=== PATIENT | male | born 1985 | race Caucasian/White ===

== ENCOUNTER 2020-09-08 02:46 | Outpatient (CLI) | payer MEDICAID, SELFPAY ==
[2020-09-11 18:16] LABS: Patient Race White; SARS-CoV-2 RNA Undetected (Undetected); SARS-CoV-2 Specimen Source Nasal
== END 2020-09-08 03:06 ==
PROVIDERS: PCP Family Medicine; Visit Provider Family Medicine
DX: Z20.828 Contact with and (suspected) exposure to other viral communicable diseases (principal)
CPT/HCPCS: U0003

== ENCOUNTER 2021-03-30 14:15 | Emergency (ER) | payer MEDICAID, SELFPAY ==
[2021-03-30] VITALS (25 sets, daily range): BP systolic 130–158; BP diastolic 74–121; PULSE 80–150; RESP 11–28; TEMP 36.8–37; O2SAT 96–100
--- NOTE | 2021-03-30 15:15 | DI.US_ITS ---
Exam(s) US LOWER EXTREMITY VENOUS RT EXAM: US LOWER EXTREMITY VENOUS RT CLINICAL HISTORY: pain. throbbing TECHNIQUE: Right lower extremity venous ultrasound performed using grayscale, color-flow, and spectr al Doppler analysis. COMPARISON: No exams were available for comparison FINDINGS: The right common femoral, femoral and popliteal veins demonstrate normal compressibility, augmentatio n, and color Doppler. The posterior tibial veins are patent. The saphenofemoral junction is unremark able. There is no evidence of a Love cyst. The soft tissues are unremarkable. IMPRESSION: No DVT. DATA REPOSITORY:
--- NOTE | 2021-03-30 15:15 | DI.CT_ITS ---
Exam(s) CT CHEST PE CTA EXAM: CT CHEST PE CTA CLINICAL HISTORY: shortness of breath, presyncope. TECHNIQUE: Imaging Protocol: Axial CT angiography was performed with multi-slice acquisition and mu lti-planar and/or 3D reconstructions. CONTRAST MATERIAL: Intravenous: Omnipaque 350 Contrast volume:100 mL COMPARISON: No previous for comparison. FINDINGS: Tracheobronchial tree: Patent where visualized. Pulmonary parenchyma: No consolidation or dominant measurable mass. No architectural distortion. Pulmonary Arteries: No evidence of filling defect to suggest pulmonary emboli. There is limited evalu ation of the segmental branches due to poor opacification. Mediastinum and Nadya: No dominant adenopathy or fluid collection. Visualized thyroid gland: Unremarkable. Pleura: No effusion or pneumothorax. Heart: The heart is not dilated. No coronary artery calcifications are seen. No pericardial effusion. Aorta: Thoracic aorta non-dilated. No evidence of dissection. Upper abdomen: Unremarkable. Soft tissues: Unremarkable. Bones: Normal. IMPRESSION: No evidence of central pulmonary embolism, thoracic aortic dissection or aneurysm. RADIATION DOSE DELIVERED: 877.21mGy.cm Total DLP DATA REPOSITORY: All CT scans at this facility are submitted to the National Radiology Data Registry (NRDR) Dose Index Registry (DIR) with the [employer] (ACR). RADIATION OPTIMIZATION: All CT scans at this facility use at least one of these dose optimization te chniques: automated exposure control; mA and/or kV adjustment per patient size (includes targeted exa ms where dose is matched to clinical indication); or iterative reconstruction.
--- NOTE | 2021-03-30 15:26 | ED.GENADUL_ITS ---
Discharge Plan Disposition Patient Disposition: HOME Condition: Stable Discharge Details Clinical Impression: Acute neck pain, Shortness of breath, Sinus tachycardia, Anxiety, Hypokalemia Primary Care Provider: Jeffrey Thompson ED Provider: Xavier Perdomo Home Meds and New Rx's Prescriptions: Continued Excedrin Migraine 250-250-65 mg tablet 2 tab PO Q6H PRNRF: 0 finasteride 1 mg tablet 1 mg PO DAILY RF: 0 Discharge Instructions Instructions: Alprazolam (By mouth), Hypokalemia (ED), Dyspnea (ED), Anxiety (ED), Neck Pain (ED) Additional Instructions: Please maintain holter monitor and return as directed. Please take Xanax for severe anxiety. Take 1 tab by mouth twice a day only if needed for anxiety. Please contact your primary care physician to arrange follow-up. Return to the ER for any worsening or new concerning symptoms. Referrals: Jeffrey Thompson, MANAGER VIDEO [Primary Care Provider] - Discharge Data Discharge Date/Time-TO BE ENTERED AT DEPARTURE: 03/30/21 19:20 Medical Decision Making 1541 -- 36-year-old male seen immediately on my arrival, here today with right- sided neck pressure. Also with recent spontaneous swelling and pain in his right lower extremity as well as having had an episode of presyncope prior to arrival. Patient was tachycardic and normotensive with heart rate around 100 when I initially assessed him. He then developed increased heart rate to 140s to 150s spontaneously and had worsening discomfort in his right neck. Concern for acute pulmonary embolism. Plan to CT chest. Consider other etiologies including DVT and right-sided carotid artery dissection. Consider arrhythmia. Will obtain stat EKG. 1553--ECG was reviewed interpreted by me: Sinus tachycardia 140 bpm, no STEMI. Oxygen has been administered and heart rate is improving. We will give Ativan 0.5 mg IV for anxiety. Plan to proceed to CT of the chest. --Patient was reassessed and significant improvement after Ativan. Notes feeling much better. 1740 --CT of the chest to assess for pulmonary embolism was interpreted by [facility]: No acute findings, no central PE, no pneumonia. No pericardial effusion. No pneumothorax. CTA of the neck was interpreted by radiology: Diminutive right vertebral artery compared to left, most consistent with normal variation. No aneurysm nor stenosis identified. No dissection or occlusion of carotid arteries. Ultrasound of the right lower extremity was interpreted by radiology: No e vidence of DVT. Labs reviewed: Patient has mild hypokalemia. I have given him a significant IV fluid here post contrast will give potassium chloride 20 meq orally. Patient reassessed and is remained stable after Ativan treatment. Given negative work-up I do believe anxiety is contributing to his presentation today. Plan will be for discharge with outpatient follow-up with primary care hero mariscal. I will place holter monitor to expedite outpatient workup. Disposition decision was made weighing the risks and benefits of hospitalization versus outpatient treatment, the risk for further decompensation, and the patient's wishes. The patient was stable and requested discharge. Prior to discharge, my usual and customary return precautions were reviewed with the patient - this included follow-up instructions and reason to return to the emergency department if condition worsens, does not improve as expected, or other new concerns arise. I spoke with patient's father at patient's request and discussed ED presentation and course and discharge plan. HPI General Mode of arrival: EMS . Date/Time Provider Initiated Documentation: 03/30/21 14:22 . Limitations to Documentation: no limitations . Information obtained by: patient and EMS . HPI Narrative: 36-year-old male with no significant past medical history is here with chief complaint of neck discomfort. Patient notes throbbing discomfort in his right neck that started few weeks ago and has occurred intermittently since onset. Today he has had discomfort in his neck and also had associated presyncope. He notes he felt lightheaded like he was going to pass out and had associated shortness of breath. Discomfort is moderate with no modifiers. No trauma. He has never had anything similar prior to the past few weeks. No associated numbness. He does have tingling in his hands bilaterally intermittently. Patient also notes spontaneous swelling of a vein anterior right goodman that he noticed while playing soccer 3 weeks ago. Swelling and engorgement of the vein resolved but he now has an area of bruising that has persisted there. Patient does note associated anxiety. Related Data Home Medications Medication Instructions Recorded Confirmed [id number]-rgaghkle 250 2 tab PO Q6H PRN 04/06/19 04/02/21 mg-250 mg-65 mg tablet finasteride 1 mg tablet 1 mg PO DAILY 04/11/20 04/02/21 Allergies Allergy/AdvReac Type Severity Reaction Status Date / Time No Known Allergies Allergy Verified 04/02/21 13:02 General Stated Complaint: GenMedical SINDY: 3 Review of Systems All systems reviewed & are unremarkable except as noted in HPI and below Constitutional Constitutional: Reports as per HPI and Denies fever(s) Cardiovascular Cardiovascular: Denies chest pain and Reports dyspnea Respiratory Respiratory: Reports dyspnea [facility] Medical History (Updated 03/30/21 @ 18:03 by Xavier Perdomo MD) Concussion Vaccine counseling Surgical History S/P knee surgery Right knee ACL Surgery Family History Mother Depression Diabetes Asthma Father Depression Brother Alcohol abuse Depression Substance abuse Brother Asthma Maternal Grandfather , 70's Diabetes Heart disease Hypertension Paternal Grandfather , 60's Alcohol abuse Depression Stroke Maternal Grandmother , 70's Heart disease Paternal Grandmother , 70's Depression Heart disease Social History Smoking/Tobacco Use Status: Never Smoking risk assessment performed?: Yes Alcohol Intake: current Alcohol Intake frequency: a few times a week Alcohol type: beer Drug use: Occasionally Substance use type: marijuana Caregiver/Support person: No Household members: family Housing: house Communication Needs: None Do you need help understanding health information?: Rarely Pets and animals: No Sexually active: No Do you think of yourself as: straight/heterosexual Current gender identity: male What is your relationship status?: never How often do you talk on the phone with friends or family?: three or more times per week How often do you get together with friends or relatives?: never How often do you attend buddhism or alevism services?: 1-3 times per year Do you belong to any clubs or organized social groups?: yes Panel score (0-1 are the most socially isolated patients): 2 What type of physical activity do you participate in: other 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, yard work Duration: 60-90 minutes/day Frequency: daily Aby/Presybeterian: None Special aby needs: No Seatbelt use: always Helmet use: Yes Helmet use: always Drive intox or ride w/intox courtesy van driver: No Do you feel safe at home: Yes Do you feel safe in your relationship?: Yes Exam Const General: cooperative, uncomfortable, well developed, anxious and diaphoretic Orientation: alert HENID Head: normocephalic and atraumatic Mouth: moist mucous membranes Eyes Conjunctivae: normal conjunctivae Sclera: normal sclerae EOM: EOM intact bilaterally Neck Neck: trachea midline and supple Resp Auscultation: clear to auscultation bilaterally, no rales, no rhonchi and no wheezes Cardio Jugular venous pressure: no JVD Rate: tachycardic Rhythm: regular rhythm Heart Sounds: S1 normal, S2 normal and no murmurs GI Palpation: soft, not firm, no guarding, no masses, not rigid and nontender Skin General skin exam: no rashes or lesions noted Neuro General: patient alert, patient awake, patient oriented x3 and tone normal Extrem General: no edema Right lower extremity: lower leg Details: no edema and other (Yellow discolorat ion with ecchymosis anterior lower leg); no tenderness and no unusual warmth Psych Appearance: grossly normal Mental Status: mental status grossly normal Speech and Movement: speech and movement normal Affect: anxious affect Course Vital Signs Vital signs: Vital Signs Temperature 37 C 03/30/21 14:20 Pulse 108 H 03/30/21 14:20 Respiratory Rate 23 03/30/21 14:20 Blood Pressure 140/82 03/30/21 14:20 Pulse Oximetry 100 03/30/21 14:20 Temperature 37 C 03/30/21 14:20 Temperature Source Skin 03/30/21 14:20 Pulse 108 H 03/30/21 14:20 Respiratory Rate 15 03/30/21 14:56 Respiratory Effort Non-Labored 03/30/21 14:56 Respiratory Depth Normal 03/30/21 14:56 Respiratory Pattern Normal 03/30/21 14:56 Blood Pressure 140/82 03/30/21 14:20 Blood Pressure Position Supine 03/30/21 14:20 Pulse Oximetry 100 03/30/21 14:20 Oxygen Delivery Method Room Air 03/30/21 14:20 Oxygen Flow Rate 0 03/30/21 14:20 Pain Level 6 03/30/21 14:20
--- NOTE | 2021-03-30 15:30 | RT.EKG_ITS ---
APPROVED REPORT Exam: Resting ECG Reason for Exam: S.o.b Patient Location: E HR:140 bpm ECG Measurements Heart Rate 140 AXIS AR 137 P 74 QRSd 102 QRS 178 QT 283 T 1 QTc 433 Conclusion Sinus tachycardia...rate> 99 ...Q>35mS, abnrm ST-T, V2-V6,I,aVL no sign of HOCM, brugada, or WPW
[2021-03-30] MEDS: Normal Saline 500 ML 999 ML IV (15:40)
[2021-03-30 15:47] LABS: Abs Immature Grans 0.05 10^3/uL (0.0-0.06); Absolute Basophil Count 0.07 10^3/uL (0.0-0.2); Absolute Eosinophil Count 0.04 10^3/uL (0.0-0.7); Absolute Neutrophil Count 8.33 10^3/uL (1.2-6.7); Basophils % 0.6; Eosinophils % 0.3; HCT 45.9 % (40.0-50.0); HGB 16.1 g/dL (13.5-17.5); Immature Grans % 0.4; Lymphocytes % 20.2; MCHC 35.1 % (32.0-36.0); MCV 85.6 fL (80-95); MPV 9.6 fL (8.0-11.0); Monocytes % 8.4; Neutrophils % 70.1; Nucleated RBC 0 %; Platelet Count 285 10^3/uL (130-400); RBC 5.36 10^6/uL (4.36-5.78); RDW 11.8 % (11.8-14.1); RDW-SD 37.1 fL; WBC 11.89 10^3/uL (4.4-10.8)
[2021-03-30] MEDS: Normal Saline Flush 10 ML SYR IVP (15:50)
[2021-03-30] MEDS: LORazepam 2 MG/ML VIAL 0.5 MG IVP (15:58)
--- NOTE | 2021-03-30 16:00 | DI.CT_ITS ---
Exam(s) CT CAROTID NECK CTA EXAM: CT CAROTID NECK CTA CLINICAL HISTORY: pain rt neck, presyncope. TECHNIQUE: Imaging Protocol: Axial CT angiography was performed with multi-slice acquisition and mu lti-planar and/or 3D reconstructions. CONTRAST MATERIAL: Intravenous: Omnipaque 350 Contrast volume:85 mL COMPARISON: No exams were available for comparison FINDINGS: The examination is limited due to patient motion artifact. CTA Neck W: Common Carotid: Right: No aneurysm, occlusion or significant stenosis. Left: No aneurysm, occlusion or significant stenosis. External Carotid: Right: No aneurysm, occlusion or significant stenosis. Left: No aneurysm, occlusion or significant stenosis. Internal Carotid: Right: No aneurysm, occlusion or significant stenosis. Left: No aneurysm, occlusion or significant stenosis. Vertebral Artery: Right: No aneurysm, occlusion or significant stenosis. The right vertebral artery is markedly diminu tive through its entire course. This may represent a normal variant. No definite dissection. Left: No aneurysm, occlusion or significant stenosis. Lung Apices: Normal. Thyroid gland: Unremarkable. Bones: Minimal degenerative changes are seen in the cervical spine. Soft Tissues: Normal. IMPRESSION: 1. No aneurysm, occlusion or significant stenosis. 2. Diminutive right vertebral artery compared to the left. This may represent a normal variant. RADIATION DOSE DELIVERED: 297.95mGy.cm Total DLP 297.95mGy.cm Total DLP DATA REPOSITORY: All CT scans at this facility are submitted to the National Radiology Data Registry (NRDR) Dose Index Registry (DIR) with the [employer] (ACR). RADIATION OPTIMIZATION: All CT scans at this facility use at least one of these dose optimization te chniques: automated exposure control; mA and/or kV adjustment per patient size (includes targeted exa ms where dose is matched to clinical indication); or iterative reconstruction.
[2021-03-30 16:03] LABS: ALT 38 U/L (16-63); AST 17 U/L (15-37); Albumin 4.3 g/dL (3.4-5.0); Alkaline Phosphatase 64 U/L (46-116); Anion Gap 13.5 mmol/L (3-11); BUN 13 mg/dL (7-18); Bilirubin, Total 0.4 mg/dL (0.2-1.0); CO2 23.5 mmol/L (21.0-32.0); CREATININE 1.3 mg/dL (0.70-1.30); Calcium 9.1 mg/dL (8.5-10.1); Chloride 104 mmol/L (98-107); Glucose 115 mg/dL (74-106); Magnesium 2.1 mg/dL (1.8-2.4); Potassium 3.3 mmol/L (3.5-5.1); Sodium 141 mmol/L (136-145); Total Protein 7.9 g/dL (6.4-8.2)
[2021-03-30 16:07] LABS: Troponin I < 0.05 ng/mL (<0.06)
[2021-03-30] MEDS: Normal Saline - Diluent 50 ML VIAL IV (16:10)
[2021-03-30] MEDS: Omnipaque 350 MG/ML 100 ML BTL IJ ×2 (16:10→16:11)
[2021-03-30 16:29] LABS: TSH (W/Ref FT4) 1.81 uIU/mL (0.36-3.74)
--- NOTE | 2021-03-30 17:10 | DI.VRAD_ITS ---
PROCEDURE INFORMATION: Exam: CT Angiography Neck With Contrast Exam date and time: 03/30/2021 4:01 PM Age: 36 years old Clinical indication: Other: Right neck pain, pre-syncope TECHNIQUE: Imaging protocol: Computed tomography angiography of the neck with contrast. 3D rendering (Not supervised by radiologist): MIP and/or 3D reconstructed images were created by the technologist. Radiation optimization: All CT scans at this facility use at least one of these dose optimization techniques: automated exposure control; mA and/or kV adjustment per patient size (includes targeted exams where dose is matched to clinical indication); or iterative reconstruction. Contrast material: OMNIPAQUE 350; Contrast volume: 85 ml; Contrast route: INTRAVENOUS (IV); COMPARISON: No relevant prior studies available. FINDINGS: Right common carotid artery: No stenosis. No dissection or occlusion. Right internal carotid artery: No stenosis of the extracranial segment. No dissection or occlusion. Right external carotid artery: No occlusion or stenosis of the origin. Left common carotid artery: No stenosis. No dissection or occlusion. Left internal carotid artery: No stenosis of the extracranial segment. No dissection or occlusion. Left external carotid artery: No occlusion or stenosis of the origin. Right vertebral artery: The right vertebral artery is markedly diminutive compared to the left from its origin through its visualized course in the neck. This is most consistent with normal variation No stenosis. No dissection or occlusion. Left vertebral artery: No stenosis. No dissection or occlusion. Soft tissues: Normal. No significant soft tissue swelling. Bones/joints: No acute fracture. Other findings: Images are degraded by motion. IMPRESSION: Diminutive right vertebral artery compared with the left, most consistent with normal variation. No aneurysm nor stenosis identified. REFERENCES: NASCET CRITERIA. The degree of internal carotid artery stenosis is based on NASCET criteria. Normal is no stenosis. Mild is less than 50% stenosis. Moderate is 50-69% stenosis. Severe is 70% to 99% stenosis. Total occlusion is no detectable patent lumen. Dictated and Authenticated by: April Horn MD. Ordering:ANNETTE Park MD
--- NOTE | 2021-03-30 17:11 | DI.VRAD_ITS ---
PROCEDURE INFORMATION: Exam: CTA Chest With Contrast Exam date and time: 03/30/2021 3:27 PM Age: 36 years old Clinical indication: Shortness of breath; Patient HX: Severe SOB, presyncope TECHNIQUE: Imaging protocol: Computed tomographic angiography of the chest with contrast. 3D rendering (Not supervised by radiologist): MIP and/or 3D reconstructed images were created by the technologist. Total images: 1711 Radiation optimization: All CT scans at this facility use at least one of these dose optimization techniques: automated exposure control; mA and/or kV adjustment per patient size (includes targeted exams where dose is matched to clinical indication); or iterative reconstruction. Contrast material: OMNIPAQUE 350; Contrast volume: 50 ml; Contrast route: INTRAVENOUS (IV); COMPARISON: No relevant prior studies available. FINDINGS: Pulmonary arteries: No filling defect in the central pulmonary arterial tree. Segmental branches are limited by quality of opacification. Aorta: No aortic aneurysm. No aortic dissection. Lungs: No consolidation, mass or suspicious pulmonary nodule. Pleural spaces: No pneumothorax. No pleural effusion. Heart: No pericardial effusion. Lymph nodes: No mediastinal, hilar or axillary adenopathy. Bones/joints: No significant bony or joint space abnormality. Soft tissues: Extrathoracic soft tissues are unremarkable. IMPRESSION: No acute findings. No central PE. No pneumonia. Dictated and Authenticated by: Hero Rosas MD. Ordering:ANNETTE Park MD
[2021-03-30] MEDS: Lactated Ringers 1,000 ML 1000 ML IV (17:19)
[2021-03-30] MEDS: Potassium Chloride 20 MEQ TABCR PO (17:24)
--- NOTE | 2021-03-30 17:43 | DI.VRAD_ITS ---
PROCEDURE INFORMATION: Exam: US Duplex Right Lower Extremity Veins, Limited Exam date and time: 03/30/2021 3:27 PM Age: 36 years old Clinical indication: Pain; Leg, lower; Right TECHNIQUE: Imaging protocol: Real-time Duplex ultrasound of the Right Lower Extremity with 2-D gonzalez scale, color Doppler flow and spectral waveform analysis with image documentation. Limited exam was focused on the right lower extremity veins. Total images: 35 COMPARISON: No relevant prior studies available. FINDINGS: Right deep veins: Unremarkable. The common femoral, femoral, proximal profunda femoral and popliteal veins are patent without thrombus. Normal Doppler waveforms. Normal compressibility and/or augmentation response. Posterior tibial and peroneal veins compress. Right superficial veins: Unremarkable. Saphenofemoral junction is patent without thrombus. Soft tissues: Unremarkable. IMPRESSION: No evidence of deep vein thrombosis. Dictated and Authenticated by: Hero Rosas MD. Ordering:ANNETTE Park MD
[2021-03-30] MEDS: ALPRAZolam 0.25 MG TAB 0.75 MG PO (18:23)
== END 2021-03-30 19:20 | disposition home or self-care (01) ==
PROVIDERS: Emergency Provider Student in an Organized Health Care Education/Training Program; PCP Nurse Practitioner Family
DX: M54.2 Cervicalgia (principal); R06.02 Shortness of breath; R00.0 Tachycardia, unspecified; F41.9 Anxiety disorder, unspecified; E87.6 Hypokalemia
CPT/HCPCS: 70498; 71275; 80053; 93005; 96361; 96374; 99285; 83735; 84443; 84484; 85025; 93010; 93225; 93971; 99284; J2060; J3490

== ENCOUNTER 2021-03-30 18:42 | Outpatient (RCR) | payer MEDICAID, SELFPAY ==
--- NOTE | 2021-03-30 18:45 | HOLTER_ITS ---
APPROVED REPORT Conclusion There is a 48-hour monitor ordered for indication of tachycardia. The patient was normal sinus rhythm with majority the recording with an average heart of 64 bpm. There were no episodes of supraventricular tachycardia nor any episodes of ventricular tachycardia. There were 2 total premature atrial contractions and 2 total premature ventricular contractions. There were no episodes of atrial fibrillation, no pauses greater than 3 seconds and no evidence of hi gh degree heart block. There were 16 patient triggered events none of which were associated with arrhythmia.
== END 2021-04-18 23:59 | disposition home or self-care (01) ==
LOC: RT 18:42
PROVIDERS: PCP Nurse Practitioner Family; Visit Provider Nurse Practitioner Family
DX: R00.0 Tachycardia, unspecified (principal)
CPT/HCPCS: 93225; 93226

== ENCOUNTER 2022-01-07 18:19 | Outpatient (REF) | payer MEDICAID, SELFPAY ==
[2022-01-07 19:14] LABS: *AMPHETAMINES SCREEN URINE Negative (Negative); *BARBITURATES SCREEN URINE Negative (Negative); *BENZODIAZEPINES SCREEN URINE Negative (Negative); Cannabinoids THC Negative (Negative); Cocaine Screen,Urine Negative (Negative); METHADONE URINE SCREEN Negative (Negative); OPIATES URINE SCREEN Negative (Negative); Tricyclic Antidepressants Negative (Negative)
== END 2022-01-07 18:20 | disposition home or self-care (01) ==
LOC: LBN 18:19
PROVIDERS: PCP Nurse Practitioner Family; Visit Provider Family Medicine
DX: Z02.1 Encounter for pre-employment examination
CPT/HCPCS: 80307

== ENCOUNTER 2022-01-11 03:31 | Outpatient (CLI) | payer MEDICAID, SELFPAY ==
[2022-01-11 09:30] LABS: Hemoglobin A1C 5.5 % (<5.7)
[2022-01-11 09:51] LABS: Anion Gap 7.9 mmol/L (3-11); BUN 15 mg/dL (7-18); CO2 29.1 mmol/L (21.0-32.0); CREATININE 1.1 mg/dL (0.70-1.30); Calcium 8.8 mg/dL (8.5-10.1); Calculated LDL 156 mg/dL (<100); Chloride 104 mmol/L (98-107); Cholesterol 234 mg/dL (<200); Glucose 97 mg/dL (74-106); HDL Cholesterol 53 mg/dL (40-60); Potassium 4.5 mmol/L (3.5-5.1); Sodium 141 mmol/L (136-145); Triglyceride 127 mg/dL (<150)
== END 2022-01-11 03:32 | disposition home or self-care (01) ==
LOC: LBO 03:32
PROVIDERS: Family Medicine; PCP Nurse Practitioner Family; Visit Provider Nurse Practitioner Family
DX: R73.9 Hyperglycemia, unspecified (principal); Z13.6 Encounter for screening for cardiovascular disorders
CPT/HCPCS: 36415; 80048; 80061; 83036

== ENCOUNTER 2022-08-19 11:45 | Outpatient (CLI) | payer OTHER, SELFPAY ==
--- NOTE | 2022-08-19 10:45 | DI.RAD_ITS ---
Exam(s) XR KNEE RT 4V AP,LAT,SUZI,PAT EXAM: XR KNEE RT 4V AP,LAT,SUZI,PAT CLINICAL HISTORY: eval R knee pain, h/o ACL reconstruction. TECHNIQUE: 2D digital imaging was performed. Three views. COMPARISON: No exams were available for comparison FINDINGS: BONES: No acute fracture is present. No bony destructive lesion is seen. Lucencies are noted in the d istal femur and proximal tibia related to prior ACL repair. A screw is seen in the proximal tibia at tibial tubercle. JOINTS: The joint spaces are maintained. There is minimal periarticular spurring. The knee is samara lly aligned. No joint effusion is seen. SOFT TISSUE: Normal. IMPRESSION: Minimal degenerative changes. Prior ACL repair. DATA REPOSITORY: RADIATION DOSE DELIVERED:
== END 2022-08-19 11:46 | disposition home or self-care (01) ==
LOC: DIORS 11:45
PROVIDERS: PCP Nurse Practitioner Family; Referring Provider Nurse Practitioner Family; Visit Provider Student in an Organized Health Care Education/Training Program
DX: M25.561 Pain in right knee (principal); M76.891 Other specified enthesopathies of right lower limb, excluding foot; Z98.890 Other specified postprocedural states
CPT/HCPCS: 73564

== ENCOUNTER → 2022-08-20 12:07 | Outpatient (CLI) | payer OTHER, SELFPAY ==
--- NOTE | 2022-08-20 11:30 | DI.MRI_ITS ---
Exam(s) MR LOWER JOINT RT WO EXAM: MR LOWER JOINT RT WO CLINICAL HISTORY: PAIN, ?ACL TEAR M23.91 INTERNAL DERANGEMENT RT KNEE S83.511A SPRAIN TECHNIQUE: Multiplanar multisequence MRI of the knee was performed. COMPARISON: CR XR KNEE RT 4V AP,LAT,SUZI,PAT from 08/19/2022 FINDINGS: EFFUSION: There is no evidence of joint prominent effusion. There is a tiny Love's cyst in the medi al popliteal fossa measuring less than 1 cm. MARROW:Evidence of previous ACL surgery. The screw in the proximal tibia causes artifact. However, there are no fractures nor bone contusion. No prominent subarticular edema. PATELLOFEMORAL COMPARTMENT: The quadriceps tendon is intact. The patellar ligament is intact. There is S mall area of focal thinning of the retropatellar cartilage, this over the medial facet. S till osteochondral defect at this level. No prominent fissures. No abnormal signal in the patella. No patellar retinacular tears. CRUCIATE LIGAMENTS: There is cruciate ligament graft which appears intact.Also does not appear to be impinged. The posterior cruciate ligament also appears intact. MEDIAL COMPARTMENT/MEDIAL MENISCUS: There are no tears of the medial meniscus evident.. There are no chondral defects, osteochondral defects, subarticular marrow edema, nor osteophytes evid ent. MEDIAL COLLATERAL LIGAMENT: Intact LATERAL COMPARTMENT/LATERAL MENISCUS: There is no evidence of lateral meniscal tear.There are no cj dral defects, osteochondral defects, subarticular marrow edema, nor osteophytes evident. ILIOTIBIAL BAND: Intact LATERAL COLLATERAL LIGAMENT COMPLEX: The fibular collateral ligament is intact. The biceps femoris t endon is intact.Popliteus muscle and tendon are intact. IMPRESSION: 1. There is an intact ACL graft. It exhibits normal signal. No obvious graft impingement evident. 2. PCL is intact and there are meniscal tears nor collateral ligament tears. 3. There is small focus of cartilage thinning in the medial aspect of the patellofemoral compartment. There is no subjacent signal abnormality in the medial aspect of the patella. 4. DATA REPOSITORY:
== END ==
PROVIDERS: PCP Nurse Practitioner Family; Visit Provider Student in an Organized Health Care Education/Training Program
DX: M23.91 Unspecified internal derangement of right knee (principal)
CPT/HCPCS: 73721

== ENCOUNTER → 2024-04-07 14:44 | Outpatient (CLI) | payer OTHER, SELFPAY ==
--- NOTE | 2024-04-07 15:25 | DI.RAD_ITS ---
Exam(s) XR KNEE LT 3V AP,LAT,SUZI EXAM: XR KNEE LT 3V AP,LAT,SUZI CLINICAL HISTORY: Injured playing soccer. Swollen, non-wt bearing, M25.569. TECHNIQUE: 2D digital imaging was performed. Three views. COMPARISON: MR MR LOWER JOINT RT WO from 08/20/2022 FINDINGS: BONES: No acute fracture is present. No bony destructive lesion is seen. JOINTS: The knee is normally aligned. A joint effusion is seen. SOFT TISSUE: Normal. IMPRESSION: Joint effusion. DATA REPOSITORY: RADIATION DOSE DELIVERED:
== END ==
PROVIDERS: PCP Nurse Practitioner Family; Visit Provider Nurse Practitioner Family
DX: M25.562 Pain in left knee (principal)
CPT/HCPCS: 73562

== ENCOUNTER 2024-06-03 16:42 | Outpatient (CLI) | payer OTHER, SELFPAY ==
--- NOTE | 2024-06-03 15:30 | DI.RAD_ITS ---
Exam(s) XR WRIST LT COMP NAVICULAR EXAM: XR WRIST LT COMP NAVICULAR CLINICAL HISTORY: worsening pain in lt wrist, M25.532. TECHNIQUE: 2D digital imaging was performed. COMPARISON: CR XR WRIST RT COMPL NAVICULAR from 06/03/2024 FINDINGS: Four views. No evidence of fracture or dislocation nor significant ulnar variance. Bone density is normal. No o sseous lesions. No erosions. No degenerative changes. Navicular view unremarkable. No radiopaque foreign body. IMPRESSION: No significant osseous findings in the left wrist. DATA REPOSITORY: RADIATION DOSE DELIVERED:
--- NOTE | 2024-06-03 15:30 | DI.RAD_ITS ---
Exam(s) XR WRIST RT COMPL NAVICULAR EXAM: XR WRIST RT COMPL NAVICULAR CLINICAL HISTORY: Worsening pain in rt wrist, M25.531. TECHNIQUE: 2D digital imaging was performed. COMPARISON: No exams were available for comparison FINDINGS: Four views No evidence fracture or dislocation nor significant ulnar variance. Bone density normal. No osseous lesions. No evidence of avascular necrosis. IMPRESSION: No significant osseous findings in the wrist. If clinically indicated follow-up MRI can be performed . DATA REPOSITORY: RADIATION DOSE DELIVERED:
== END 2024-06-03 17:02 ==
LOC: DI 16:43
PROVIDERS: PCP Nurse Practitioner Family; Visit Provider Nurse Practitioner Family
DX: M25.531 Pain in right wrist (principal); M25.532 Pain in left wrist
CPT/HCPCS: 73110

== ENCOUNTER 2024-06-16 07:37 | Emergency (ER) | payer OTHER, SELFPAY ==
[2024-06-16 07:43] VITALS: BP 142/94; PULSE 69; RESP 16; TEMP 37.1; O2SAT 100
[2024-06-16 07:47] VITALS: BP 142/94; PULSE 69; RESP 16; TEMP 37.1; O2SAT 100
--- NOTE | 2024-06-16 08:03 | ED.GENADUL_ITS ---
Discharge Plan Disposition Patient Disposition: Home Condition: Stable Discharge Details Clinical Impression: Corneal abrasion Primary Care Provider: Jeffrey Thompson ED Provider: Peter Sotelo Home Meds and New Rx's Prescriptions: Continued Excedrin Migraine 250-250-65 mg tablet 2 tab PO Q6H PRN minoxidil 2.5 mg tablet 1.25 mg PO DAILY finasteride 1 mg tablet 1 mg PO DAILY sertraline 50 mg tablet 50 mg PO DAILY Qty: 60 0RF (DME) ACL Brace See Rx Instructions .ROUTE .MEDSUPPLY Qty: 1 0RF Rx Instructions: Please fit and place an ACL brace for gross instability of the knee, both translation and rotation Discharge Instructions Additional Instructions: Use the erythromycin ointment twice a day for 5 days You can use the tetracaine 1 drop every 4 hours as needed. Do not use for more than 24 hours If you are not improving in 2 to 3 days follow-up with [facility] If you feel more ill or have severe worsening pain or changes in vision return to the emergency department for reevaluation HPI General Mode of arrival: ambulatory . Date/Time Provider Initiated Documentation: 06/16/24 07:51 . Limitations to Documentation: no limitations . Information obtained by: patient . History of Present Illness 39 year old M presents to the emergency department with the chief complaint of right eye redness, described as moderate, Quality is described as burning, Patient reports no radiation. Patient started experiencing this day(s) (1) and it has been constant. No relieving factors improve symptom(s), No exacerbating factors reported . Patient notes no other symptoms.. Patient did receive the following treatments prior to arrival, none Related Data Home Medications ?Medication ?Instructions ?Recorded ?Confirmed [id number] 250 2 tab PO Q6H PRN 04/06/19 06/16/24 mg-250 mg-65 mg tablet (Excedrin Migraine) finasteride 1 mg tablet 1 mg PO DAILY 04/11/20 06/16/24 ACL Brace #1 ea 08/27/22 06/16/24 minoxidil 2.5 mg tablet 1.25 mg PO DAILY 10/23/23 06/16/24 sertraline 50 mg tablet 50 mg PO DAILY #60 tabs 05/19/24 06/16/24 Previous Rx's ?Medication ?Instructions ?Recorded ACL Brace #1 ea 08/27/22 sertraline 50 mg tablet 50 mg PO DAILY #60 tabs 05/19/24 Allergies Allergy/AdvReac Type Severity Reaction Status Date / Time No Known Allergies Allergy Verified 06/16/24 07:41 General Stated Complaint: EyeProblem SINDY: 4 Review of Systems All systems reviewed & are unremarkable except as noted in HPI and below Constitutional Constitutional: Denies chills, Denies fever(s) and Denies weakness Eyes Eyes: Denies loss of vision Neurologic Neurologic: Denies loss of vision and Denies weakness Exam Const General: no acute distress Orientation: alert HENMT Head: normal to inspection Ears: external ears normal General nose exam: external nose normal Mouth: moist mucous membranes Eyes General: appearance normal, both eyes and all related structures Eyelids: eyelids normal Pupils: PERRL EOM: EOM intact bilaterally Neck Neck: normal visual inspection Resp Effort & Inspection: normal respiratory effort and able to speak in complete sentences Cardio Rate: regular rate Skin General skin exam: no rashes or lesions noted Neuro General: patient alert and patient oriented x3 Extrem General: normal to inspection Psych Mental Status: mental status grossly normal Course Vital Signs Vital signs: Vital Signs Temperature 37.1 C 06/16/24 07:43 Pulse 69 06/16/24 07:43 Respiratory Rate 16 06/16/24 07:43 Blood Pressure 142/94 H 06/16/24 07:43 Pulse Oximetry 100 06/16/24 07:43 Temperature 37.1 C 06/16/24 07:47 Temperature Source Temporal Artery Scan 06/16/24 07:47 Pulse 69 06/16/24 07:47 Respiratory Rate 16 06/16/24 07:47 Respiratory Effort Normal, Non-Labored 06/16/24 07:47 Blood Pressure 142/94 H 06/16/24 07:47 Blood Pressure Position Sitting 06/16/24 07:47 Pulse Oximetry 100 06/16/24 07:47 Oxygen Delivery Method Room Air 06/16/24 07:47 Oxygen Flow Rate 0 06/16/24 07:43 Pain Level 2 06/16/24 07:47 Medical Decision Making 39-year-old male comes in with right eye redness. He says last night he noticed a white bump in the area and today has been feeling a burning sensation. Denies any loss of vision or changes in vision. He has normal vision in the right eye. There is no periorbital swelling, pupils are equal and reactive to light. Extraocular motions are intact. He has mild erythema of the right side of his right conjunctiva. No visible foreign body. I did place tetracaine and he had relief of the burning sensation he had. He does have a small 1 mm corneal abrasion in the area. Placed on prophylactic erythromycin and he will follow-up with [facility] care of is not improving a few days, return precautions given. Differential Diagnosis Differential Diagnosis: conjunctivitis, keratoconjunctivitis, Quality:SDOH Health Related Social Needs: No Data to Display PFSH All Active Problems (Updated 06/16/24 @ 08:14 by Peter Sotelo MD) Corneal abrasion (Acute) Bilateral wrist pain (Acute) Anxiety (Chronic) Left ACL tear (Acute) Knee pain, acute (Acute) Internal derangement of right knee (Acute) Right ACL tear (Acute) Right knee pain (Acute) Hyperlipidemia (Acute) External hemorrhoid (Acute) Right shoulder pain (Acute) Alopecia (Acute) mother with alopecia Medical History (Updated 06/16/24 @ 08:14 by Peter Sotelo MD) Tinea pedis Vaccine counseling Concussion Surgical History S/P knee surgery Right knee ACL Surgery Family History Mother Depression Diabetes Asthma Father Depression Brother Alcohol abuse Depression Substance abuse Brother Asthma Maternal Grandfather , 70's Diabetes Heart disease Hypertension Paternal Grandfather , 60's Alcohol abuse Depression Stroke Maternal Grandmother , 70's Heart disease Paternal Grandmother , 70's Depression Heart disease Social History (Updated 09/05/22 @ 12:39 by Luz Maria Monson) Smoking/Tobacco Use Status: Never Second Hand Exposure: No Smoking risk assessment performed?: Yes Alcohol Intake: current Alcohol Intake frequency: a few times a week Alcohol type: beer Drug use: Socially Substance use type: marijuana Caregiver/Support person: No Household members: none Housing: apartment Communication Needs: None Do you need help understanding health information?: Never Pets and animals: No Sexually active: No Do you think of yourself as: straight/heterosexual Current gender identity: male What is your relationship status?: never How often do you talk on the phone with friends or family?: twice per week How often do you get together with friends or relatives?: never How often do you attend faith or sabianism services?: decline to answer Do you belong to any clubs or organized social groups?: no Panel score (0-1 are the most socially isolated patients): 0 What type of physical activity do you participate in: walking Duration: 45-60 minutes/day Frequency: daily Aby/Mormonism: No preference Special aby needs: No Seatbelt use: always Helmet use: Yes Helmet use: always 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
== END 2024-06-16 08:32 | disposition home or self-care (01) ==
PROVIDERS: Emergency Provider Emergency Medicine; PCP Nurse Practitioner Family
DX: S05.01XA Injury of conjunctiva and corneal abrasion without foreign body, right eye, initial encounter (principal); X58.XXXA Exposure to other specified factors, initial encounter
CPT/HCPCS: 99283